=== PATIENT | male | born 1975 | race Caucasian/White ===

== ENCOUNTER 2020-11-14 15:41 | Emergency (ER) | payer OTHER, SELFPAY ==
[2020-11-14 15:44] VITALS: BP 134/85; PULSE 76; RESP 20; TEMP 36.1; O2SAT 100
[2020-11-14 16:37] LABS: Basophils Absolute Auto 0.1 K/mm3 (0.0-0.1); Basophils Percent Auto 0.4 % (0.2-1.2); Eosinophils Absolute Auto 0.1 K/mm3 (0-0.3); Eosinophils Percent Auto 0.8 % (0-4.4); Hematocrit 44.5 % (42.0-52.0); Hemoglobin 15.6 g/dL (14.0-18.0); Immature Granulocyte Absolute 0.15 K/mm3 (0.00-0.031); Immature Granulocyte Percent A 0.9 % (0-0.5); Lymphocytes Absolute Auto 2.27 K/mm3 (0.9-3.2); Lymphocytes Percent Auto 12.9 % (18.3-44.2); Mean Corpuscular HGB Conc 35.1 g/dl (32-36); Mean Corpuscular Hemoglobin 29.5 pg (26-34); Mean Corpuscular Volume 84.3 fl (80-100); Mean Platelet Volume 8.9 fl (7.4-10.4); Monocytes Absolute Auto 0.8 K/mm3 (0.1-0.6); Monocytes Percent Auto 4.6 % (2.6-8.5); Neutrophils Absolute Auto 14.1 K/mm3 (1.3-6.7); Neutrophils Percent Auto 80.4 % (45.5-73.1); Platelet Count Result 279 k/mm3 (150-375); Red Blood Count 5.28 M/mm3 (4.6-6.20); White Blood Count 17.6 K/mm3 (4.5-10.0)
[2020-11-14 16:51] LABS: Anion Gap 18 mmol/L (8-16); Blood Urea Nitrogen 24 mg/dL (9-20); Calcium 10.6 mg/dL (8.4-10.2); Carbon Dioxide 21 mmol/L (22-30); Chloride 94 mmol/L (98-107); Estimated CRCL calculation 47 ml/min; Estimated Glomerular Filt Rate 36; Glucose 106 mg/dL (65-110); Potassium 3.5 mmol/L (3.4-5.0); Sodium 133 mmol/L (137-145)
[2020-11-14] MEDS: SODIUM CHLORIDE 0.9% IV 1,000 ML 999 ML IV CONT ×3 (16:59→18:54)
[2020-11-14 17:21] LABS: Albumin Level 5.5 g/dL (3.5-5.1); Alkaline Phosphatase 114 U/L (38-126); Aspartate Amino Transferase 34 U/L (17-59); Bilirubin,Total 1.2 mg/dL (0.2-1.3); Creatine Kinase 454 U/L (55-170); Magnesium 1.9 mg/dL (1.6-2.3)
[2020-11-14 17:26] LABS: Alanine Aminotransferase 31 U/L (4-50)
--- NOTE | 2020-11-14 17:33 | ED.GENADULT ---
HPI - General Adult General Chief complaint: Unspecified Stated complaint: cramping muscles Time Seen by Provider: 11/14/20 16:36 Source: RN notes reviewed History of Present Illness HPI narrative: Patient presents to emergency department from work for muscle cramping. Patient states he has been working out in the heat all day today wearing jeans. He states that he started developing intermittent diffuse muscle cramping several hours ago states that symptoms have improved since he moved inside but does continue to have them he denies any fevers or chills chest pain shortness of breath or any other symptom Related Data Home Medications Medication Instructions Recorded Confirmed No Home Medications 11/14/20 11/14/20 Allergies Allergy/AdvReac Type Severity Reaction Status Date / Time No Known Allergies Allergy Verified 11/14/20 16:39 Review of Systems Review of Systems: Gen.: Denies fevers or chills ENT: Denies congestion Respiratory: Denies shortness of breath or cough CV: Denies chest pain or palpitations GI: Denies abdominal pain nausea, emesis or diarrhea Musculoskeletal: See HPI Neuro: Denies numbness, tingling, weakness or focal weakness Skin: Denies rash Except as documented, all other systems reviewed and negative [facility] Past Medical History Medical History (Updated 11/14/20 @ 18:46 by Mickey Jackson DO) Patient denies significant medical history Social History Social History (Updated 11/14/20 @ 17:34 by Mickey Jackson DO) Smoking status: Never smoker Alcohol intake: current Exam Narrative: APPEARANCE: No acute distress, nontoxic, resting in bed EYES: EOMI HEENT: Normocephalic, atraumatic, OMM RESPIRATORY: No respiratory distress Clear to auscultation bilaterally with no rhonchi wheezing or rales. CARDIOVASCULAR: Regular rate and rhythm without murmurs rubs or gallops. ABDOMINAL: Soft, nontender, nondistended, no rebound or guarding MUSCULOSKELETAl: Moves all extremities. No clubbing, cyanosis or edema. NEURO: Awake and alert. Following commands, speech normal, no focal deficits SKIN:: Warm, dry. No rashes lesions or abrasions PSYCHIATRIC: Normal affect/mood, Course Course Emergency Course: Patient states he is doing much better at this time Discussed with patient results of workup and diagnosis. Discussed need for follow-up with primary care, proper use of medication, and reasons to return to the emergency department. Patient understands and agrees to current treatment plan Vital Signs Vital signs: Vital Signs Temperature 96.9 F L 11/14/20 15:44 Pulse Rate 76 11/14/20 15:44 Respiratory Rate 20 11/14/20 15:44 Blood Pressure 134/85 11/14/20 15:44 Pulse Oximetry 100 11/14/20 15:44 Temperature 96.9 F L 11/14/20 15:44 Pulse Rate 78 11/14/20 18:14 Respiratory Rate 20 11/14/20 18:14 Blood Pressure 134/94 H 11/14/20 18:14 Pulse Oximetry 99 11/14/20 18:14 Medical Decision Making MDM Narrative Medical decision making narrative: Patient presenting with diffuse muscle cramps been working outside in the heat all day initial lab work showed dehydration patient was given initially 2 L of fluid repeat lab results do show improvement with improving creatinine and anion gap. Patient given 1 more liter fluid we will discharge discussed with patient need for follow-up with his PCP for repeat lab testing as Vital Signs Vital Signs: Vital Signs Temperature 96.9 F L 11/14/20 15:44 Pulse Rate 76 11/14/20 15:44 Respiratory Rate 20 11/14/20 15:44 Blood Pressure 134/85 11/14/20 15:44 Pulse Oximetry 100 11/14/20 15:44 Temperature 96.9 F L 11/14/20 15:44 Pulse Rate 78 11/14/20 18:14 Respiratory Rate 20 11/14/20 18:14 Blood Pressure 134/94 H 11/14/20 18:14 Pulse Oximetry 99 11/14/20 18:14 Lab Data Result diagrams: 11/14/20 16:19 11/14/20 18:13 Labs: Lab Results 11/14/20 11/14/20 11/14/20 Range/U
--- NOTE | 2020-11-14 18:00 | PC.NURSE ---
pt states unable to void at this time. states will try again later
[2020-11-14 18:01] VITALS: BP 134/94; PULSE 78; RESP 23; O2SAT 100
[2020-11-14 18:14] VITALS: BP 134/94; PULSE 78; RESP 20; O2SAT 99
[2020-11-14 18:38] LABS: Alanine Aminotransferase 24 U/L (4-50); Albumin Level 4.6 g/dL (3.5-5.1); Alkaline Phosphatase 95 U/L (38-126); Anion Gap 11 mmol/L (8-16); Aspartate Amino Transferase 28 U/L (17-59); Bilirubin,Total 1.1 mg/dL (0.2-1.3); Blood Urea Nitrogen 23 mg/dL (9-20); Calcium 8.8 mg/dL (8.4-10.2); Carbon Dioxide 19 mmol/L (22-30); Chloride 101 mmol/L (98-107); Creatine Kinase 430 U/L (55-170); Estimated CRCL calculation 58 ml/min; Estimated Glomerular Filt Rate 47; Glucose 97 mg/dL (65-110); Potassium 3.6 mmol/L (3.4-5.0); Sodium 131 mmol/L (137-145)
[2020-11-14 19:00] VITALS: PULSE 72; RESP 21; O2SAT 99
[2020-11-14 19:15] VITALS: PULSE 69; RESP 18; O2SAT 99
[2020-11-14 19:30] VITALS: PULSE 82; RESP 18
== END 2020-11-14 19:45 | disposition home or self-care (01) ==
PROVIDERS: Emergency Provider Emergency Medicine
DX: T67.5XXA Heat exhaustion, unspecified, initial encounter (principal); N28.9 Disorder of kidney and ureter, unspecified; E86.0 Dehydration; X30.XXXA Exposure to excessive natural heat, initial encounter
CPT/HCPCS: 36415; 80048; 80053; 80076; 82550; 83735; 85025; 96360; 96361; 99283; J7030